=== PATIENT | female | born 1960 | race Caucasian/White ===

== ENCOUNTER 2017-04-20 09:01 | Observation (INO) | payer SELFPAY ==
[~2017-04-20 09:01] MED LIST: CARB6.5S5 EACH EAR; Z.0.NO CURRENT MEDS
[2017-04-20 09:04] VITALS: BP 140/81; PULSE 85; RESP 20; TEMP 97.7; O2SAT 96
[2017-04-20] MEDS ORDERED: ASPIRIN 325 MG TAB PO ONE (09:15)
[2017-04-20] MEDS ORDERED: SODIUM CHLORIDE 0.9% FLUSH 10 ML FLUSH IVF PRN (09:15)
--- NOTE | 2017-04-20 09:17 | PD ---
HPI Chief Complaint: Respiratory Symptoms Time Seen by Provider: 09:10 Travel History International Travel<30 days: No Contact w/Intl Traveler<30days: No Traveled to known affect area: No History of Present Illness HPI This 56-year-old female says she woke up morning around 4:00 with precordial pressure. The sensation lasted 10-15 minutes. It is associated with shortness of breath. Since then she's had for 5 episodes like this. She has not been diaphoretic. She has not had symptoms like this before. She has no history of heart disease. She is on no medications. sHe does not smoke. She is not aware of any family history of heart disease. She has no hypertension or diabetes. PFSH Past Medical History Diminished Hearing: No Immunizations Current: Yes ?: Not Menopausal: Yes Past Surgical History Section: Yes Social History Alcohol Use: Yes (rare) Tobacco Use: No Substance Use: No Allergies-Medications (Allergen,Severity, Reaction): Coded Allergies: No Known Allergies (Verified Adverse Reaction, Unknown, 04/20/17) Reported Meds & Prescriptions Reported Meds & Active Scripts Active No Active Prescriptions or Reported Medications Review of Systems General / Constitutional: No: Fever, Chills Eyes: No: Diploplia, Blurred Vision HENT: No: Headaches, Vertigo Cardiovascular: Positive: Chest Pain or Discomfort, No: Palpitations Respiratory: Positive: Shortness of Breath, No: Cough Gastrointestinal: No: Nausea, Vomiting Genitourinary: No: Urgency Physical Exam Narrative GENERAL: Well-developed female SKIN: Focused skin assessment warm/dry. HEAD: Atraumatic. Normocephalic. EYES: Pupils equal and round. No scleral icterus. No injection or drainage. ENT: No nasal bleeding or discharge. Mucous membranes pink and moist. NECK: Trachea midline. No JVD. CARDIOVASCULAR: Regular rate and rhythm. No murmur appreciated. RESPIRATORY: No accessory muscle use. Clear to auscultation. Breath sounds equal bilaterally. No chest wall tenderness GASTROINTESTINAL: Abdomen soft, there is some mild epigastric tenderness, nondistended. Hepatic and splenic margins not palpable. MUSCULOSKELETAL: No obvious deformities. No clubbing. No cyanosis. No edema. NEUROLOGICAL: Awake and alert. No obvious cranial nerve deficits. Motor grossly within normal limits. Normal speech. PSYCHIATRIC: Appropriate mood and affect; insight and judgment normal. Data Data Last Documented VS Vital Signs Date Time Temp Pulse Resp B/P (MAP) Pulse Ox O2 Delivery O2 Flow Rate FiO2 04/20/17 10:07 71 20 126/86 (99) 95 04/20/17 09:04 97.7 Orders Orders Electrocardiogram (04/20/17 09:10) Basic Metabolic Panel (Bmp) (04/20/17 09:10) Complete Blood Count With Diff (04/20/17 09:10) Magnesium (Mg) (04/20/17 09:10) Prothrombin Time / Inr (Pt) (04/20/17 09:10) Act Partial Throm Time (Ptt) (04/20/17 09:10) Troponin I (04/20/17 09:10) Chest, Single Ap (04/20/17 09:10) Ecg Monitoring (04/20/17 09:10) Iv Access Insert/Monitor (04/20/17 09:10) Oximetry (04/20/17 09:10) Oxygen Administration (04/20/17 09:10) Aspirin (Aspirin) (04/20/17 09:15) Sodium Chloride 0.9% Flush (Ns Flush) (04/20/17 09:15) D-Dimer (04/20/17 09:15) Labs Laboratory Tests Test 04/20/17 09:15 White Blood Count 6.6 TH/MM3 Red Blood Count 4.22 MIL/MM3 Hemoglobin 12.8 GM/DL Hematocrit 38.4 % Mean Corpuscular Volume 91.2 FL Mean Corpuscular Hemoglobin 30.4 PG Mean Corpuscular Hemoglobin Concent 33.4 % Red Cell Distribution Width 12.6 % Platelet Count 264 TH/MM3 Mean Platelet Volume 7.0 FL Neutrophils (%) (Auto) 64.9 % Lymphocytes (%) (Auto) 27.0 % Monocytes (%) (Auto) 6.1 % Eosinophils (%) (Auto) 1.3 % Basophils (%) (Auto) 0.7 % Neutrophils # (Auto) 4.3 TH/MM3 Lymphocytes # (Auto) 1.8 TH/MM3 Monocytes # (Auto) 0.4 TH/MM3 Eosinophils # (Auto) 0.1 TH/MM3 Basophils # (Auto) 0.0 TH/MM3 CBC Comment DIFF FINAL Differential Comment Prothrombin Time 10.3 SEC Prothromb Time International Ratio 0.9 RATIO Activated Partial Thromboplast Time 26.1 SEC D-Dimer Quantitative (PE/DVT) 0.27 MG/L FEU Blood Urea Nitrogen 12 MG/DL Creatinine 0.58 MG/DL Random Glucose 98 MG/DL Calcium Level 9.0 MG/DL Magnesium Level 2.2 MG/DL Sodium Level 142 MEQ/L Potassium Level 3.7 MEQ/L Chloride Level 108 MEQ/L Carbon Dioxide Level 23.1 MEQ/L Anion Gap 11 MEQ/L Estimat Glomerular Filtration Rate 108 ML/MIN Troponin I LESS THAN 0.02 NG/ML MDM Medical Decision Making Medical Screen Exam Complete: Yes Emergency Medical Condition: Yes Medical Record Reviewed: Yes Differential Diagnosis Differential includes chest pain, coronary artery disease, GERD, PE Narrative Course Chest x-ray is negative. D-dimer is normal. EKG shows sinus rhythm with possible right ventricular conduction delay. There are no acute ST-T wave changes. Troponin is normal. Patient has been given aspirin she has not had any more symptoms in the ER. I think she should be evaluated in the chest pain center Diagnosis Primary Impression: Chest pain Admitting Information Admitting Physician Requests: Observation Scripts No Active Prescriptions or Reported Meds Herbert Monk MD Apr 20, 2017 09:17
[2017-04-20 09:23] LABS: AUTOMATED NEUTROPHIL # 4.3 TH/MM3 (1.8-7.7); BASOPHIL % 0.7 % (0.0-2.0); EOSINOPHIL # 0.1 TH/MM3 (0-0.4); EOSINOPHIL % 1.3 % (0.0-4.0); HEMATOCRIT 38.4 % (35.0-46.0); HEMOGLOBIN 12.8 GM/DL (11.6-15.3); LYMPHOCYTE # 1.8 TH/MM3 (1.0-4.8); MEAN CELL VOLUME 91.2 FL (80.0-100.0); MEAN CORPUSCULAR HEMOGLOBIN 30.4 PG (27.0-34.0); MEAN CORPUSCULAR HGB CONC 33.4 % (32.0-36.0); MONO % 6.1 % (0.0-8.0); MONOCYTE # 0.4 TH/MM3 (0-0.9); NEUT % 64.9 % (16.0-70.0); PLATELET COUNT 264 TH/MM3 (150-450); RED BLOOD COUNT 4.22 MIL/MM3 (4.00-5.30); RED CELL DISTRIBUTION WIDTH 12.6 % (11.6-17.2); WHITE BLOOD COUNT 6.6 TH/MM3 (4.0-11.0)
[2017-04-20 09:24] VITALS: O2SAT 100
--- NOTE | 2017-04-20 09:39 | RADRPT ---
EXAM DATE/TIME: 04/20/2017 09:25 [facility] COMPARISON: No previous studies available for comparison. INDICATIONS : Short of breath and chest pain this morning. MEDICAL HISTORY : None. SURGICAL HISTORY : None. ENCOUNTER: Initial ACUITY: 1 day PAIN SCORE: 2/10 LOCATION: Bilateral chest FINDINGS: A single view of the chest demonstrates the lungs to be symmetrically aerated without evidence of mas s, infiltrate or effusion. The cardiomediastinal contours are unremarkable. Osseous structures are intact. CONCLUSION: No acute disease. Dean Chacko MD on April 20, 2017 at 9:37 Board Certified Radiologist. This report was verified electronically.
--- NOTE | 2017-04-20 09:39 | RADRPT ---
EXAM DATE/TIME: 04/20/2017 09:25 [facility] COMPARISON: No previous studies available for comparison. INDICATIONS : Short of breath and chest pain this morning. MEDICAL HISTORY : None. SURGICAL HISTORY : None. ENCOUNTER: Initial ACUITY: 1 day PAIN SCORE: 2/10 LOCATION: Bilateral chest FINDINGS: A single view of the chest demonstrates the lungs to be symmetrically aerated without evidence of mas s, infiltrate or effusion. The cardiomediastinal contours are unremarkable. Osseous structures are intact. CONCLUSION: No acute disease. eDan Chacko MD on April 20, 2017 at 9:37 Board Certified Radiologist. This report was verified electronically.
[2017-04-20 09:54] LABS: INTERNATIONAL NORMALIZED RATIO 0.9 RATIO; PROTHROMBIN TIME - PATIENT 10.3 SEC (9.8-11.6)
[2017-04-20 09:55] LABS: D-DIMER 0.27 MG/L FEU (0.00-0.50)
[2017-04-20 09:56] LABS: BICARBONATE 23.1 MEQ/L (21.0-32.0); BLOOD UREA NITROGEN 12 MG/DL (7-18); GLUCOSE,RANDOM 98 MG/DL (74-106); MAGNESIUM 2.2 MG/DL (1.5-2.5)
[2017-04-20 09:59] LABS: CREATININE 0.58 MG/DL (0.50-1.00); GLOMERULAR FILTRATION RATE 108 ML/MIN (>89)
[2017-04-20 10:03] LABS: CHLORIDE 108 MEQ/L (98-107); SODIUM (NA) 142 MEQ/L (136-145)
[2017-04-20 10:04] LABS: TROPONIN I LESS THAN 0.02 NG/ML (0.02-0.05)
[2017-04-20 10:07] VITALS: BP 126/86; PULSE 71; RESP 20; O2SAT 95
[2017-04-20 11:10] VITALS: BP 118/77; PULSE 63; RESP 20; O2SAT 100
--- NOTE | 2017-04-20 11:36 | HHI.HP ---
[facility] Service [facility] Primary Care Physician No Primary Care Physician Admission Diagnosis CHEST PAIN Diagnoses: Chief Complaint: Chest pain Travel History International Travel<30 Days: No Contact w/Intl Traveler <30 Da: No Traveled to Known Affected Are: No History of Present Illness 56-year-old white female being admitted for chest pain. Patient was in her usual state of health until early this morning when she woke up suddenly feeling a squeezing type chest pain associated with shortness of breath. This lingered on for about 15 minutes and then subsided completely. The pain recurred a few times, leading her to come to the emergency room. She says the pain was at its worst a 6 out of 10. She was not able to note any alleviating or exacerbating factors including changing positions. She did not take any medications to try to treat the pain. She says that yesterday she had some nausea and lightheadedness with no recurrence today. She denies ever having any cardiac history, no cardiac since, no bypass surgery, no stress tests. Says she does not go to the doctor often. She states she's had panic attacks in the past but cannot be sure that this felt similar to them. Review of Systems Except as stated in HPI: all other systems reviewed are Neg Past Family Social History Past Medical History Questionable panic attacks Past Surgical History C section Allergies: Coded Allergies: No Known Allergies (Verified Adverse Reaction, Unknown, 04/20/17) Family History heart disease per sister Social History walks to work, works manual labor Physical Exam Vital Signs Vital Signs Date Time Temp Pulse Resp B/P (MAP) Pulse Ox O2 Delivery O2 Flow Rate FiO2 04/20/17 11:10 63 20 118/77 (91) 100 04/20/17 10:07 71 20 126/86 (99) 95 04/20/17 09:24 100 04/20/17 09:04 97.7 85 20 140/81 (100) 96 Physical Exam VS: Afebrile GENERAL: No acute distress SKIN: Warm and dry. EYES: No scleral icterus. No injection or drainage. ENT: No nasal bleeding or discharge. Mucous membranes pink and moist. CARDIOVASCULAR: Regular rate and rhythm. no murmurs RESPIRATORY: No accessory muscle use. Clear to auscultation. Breath sounds equal bilaterally. GASTROINTESTINAL: Abdomen soft, non-tender, nondistended. Hepatic and splenic margins not palpable. Extremities: No clubbing, cyanosis, or edema. No obvious deformities. MUSCULOSKELETAL: Extremities without clubbing, cyanosis, or edema. No obvious deformities. grossly intact ROM with 5/5 strength in upper extremities. No chest wall tenderness to palpation and suprasternal or midsternal areas. NEUROLOGICAL: Awake and alert. No obvious cranial nerve deficits. No facial droop nor slurred speech noted. PSYCHIATRIC: Appropriate mood and affect; insight and judgment normal. Laboratory Laboratory Tests Test 04/20/17 09:15 White Blood Count 6.6 Red Blood Count 4.22 Hemoglobin 12.8 Hematocrit 38.4 Mean Corpuscular Volume 91.2 Mean Corpuscular Hemoglobin 30.4 Mean Corpuscular Hemoglobin Concent 33.4 Red Cell Distribution Width 12.6 Platelet Count 264 Mean Platelet Volume 7.0 Neutrophils (%) (Auto) 64.9 Lymphocytes (%) (Auto) 27.0 Monocytes (%) (Auto) 6.1 Eosinophils (%) (Auto) 1.3 Basophils (%) (Auto) 0.7 Neutrophils # (Auto) 4.3 Lymphocytes # (Auto) 1.8 Monocytes # (Auto) 0.4 Eosinophils # (Auto) 0.1 Basophils # (Auto) 0.0 CBC Comment DIFF FINAL Differential Comment Prothrombin Time 10.3 Prothromb Time International Ratio 0.9 Activated Partial Thromboplast Time 26.1 D-Dimer Quantitative (PE/DVT) 0.27 Blood Urea Nitrogen 12 Creatinine 0.58 Random Glucose 98 Calcium Level 9.0 Magnesium Level 2.2 Sodium Level 142 Potassium Level 3.7 Chloride Level 108 Carbon Dioxide Level 23.1 Anion Gap 11 Estimat Glomerular Filtration Rate 108 Troponin I LESS THAN 0.02 Result Diagram: 04/20/1791404/20/17914 Imaging Last Impressions Chest X-Ray 04/20/17909 Signed Impressions: Service Date/Time: Thursday, April 20, 2017 09:25 - CONCLUSION: No acute disease. MD Frank Rodas VTE Risk Assessment Caprini VTE Risk Assessment: No/Low Risk (score <= 1) Caprini Risk Assessment Model Point Value = 1 Point Value = 2 Point Value = 3 Point Value = 5 Age 41-60 Minor surgery BMI > 25 kg/m2 Swollen legs Varicose veins or History of unexplained or recurrent spontaneous Oral contraceptives or hormone replacement Sepsis (< 1 month) Serious lung disease, including pneumonia (< 1 month) Abnormal pulmonary function Acute myocardial infarction Congestive heart failure (< 1 month) History of inflammatory bowel disease Medical patient at bed rest Age 61-74 Arthroscopic surgery Major open surgery (> 45 min) Laparoscopic surgery (> 45 min) Malignancy Confined to bed (> 72 hours) Immobilizing plaster cast Central venous access Age >= 75 History of VTE Family history of VTE Factor V Leiden Prothrombin [id number] Lupus anticoagulant Anticardiolipin antibodies Elevated serum homocysteine Heparin-induced thrombocytopenia Other congenital or acquired thrombophilia Stroke (< 1 month) Elective arthroplasty Hip, pelvis, or leg fracture Acute spinal cord injury (< 1 month) Prophylaxis Regimen Total Risk Factor Score Risk Level Prophylaxis Regimen 0-1 Low Early ambulation 2 Moderate Order ONE of the following: *Sequential Compression Device (SCD) *Heparin 5000 units SQ BID 3-4 Higher Order ONE of the following medications: *Heparin 5000 units SQ TID *Enoxaparin/Lovenox 40 mg SQ daily (WT < 150 kg, CrCl > 30 mL/min) *Enoxaparin/Lovenox 30 mg SQ daily (WT < 150 kg, CrCl > 10-29 mL/min) *Enoxaparin/Lovenox 30 mg SQ BID (WT < 150 kg, CrCl > 30 mL/min) AND/OR *Sequential Compression Device (SCD) 5 or more Highest Order ONE of the following medications: *Heparin 5000 units SQ TID (Preferred with Epidurals) *Enoxaparin/Lovenox 40 mg SQ daily (WT < 150 kg, CrCl > 30 mL/min) *Enoxaparin/Lovenox 30 mg SQ daily (WT < 150 kg, CrCl > 10-29 mL/min) *Enoxaparin/Lovenox 30 mg SQ BID (WT < 150 kg, CrCl > 30 mL/min) AND *Sequential Compression Device (SCD) Assessment and Plan Assessment and Plan Chest pain - admit to chest pain center, had caffeine this morning, plan for either treadmill or a Lexiscan in a.m. - We'll try starting patient on PPI - EKG which I independently reviewed shows no acute ST segment abnormalities concerning for ischemia - we'll trend troponins, nothing by mouth after midnight - Continue aspirin 325 mg and Lipitor 40 mg DVT prophylaxis - SCDs Patient is hemodynamically stable upon admission. I was later notified that the patient was wanting to leave AMA because she wanted get back to work, she says she was feeling better. It was explained to her thoroughly that this is AGAINST MEDICAL ADVICE and that an incomplete workup and treatment of her symptoms could result in severe morbidity or . Patient decided to leave anyway. Quang Andrew MD Apr 20, 2017 11:36
[2017-04-20 12:51] VITALS: BP 115/78
[2017-04-20 15:33] VITALS: PULSE 60
[2017-04-20 20:00] LABS: CHOLESTEROL/ HDL RATIO 2.43 RATIO; HDL CHOLESTEROL 119.2 MG/DL (40.0-60.0)
--- NOTE | 2017-04-21 18:18 | EKG ---
Date Performed: 04/20/2017 Time Performed: 09:21:22 PTAGE: 56 years EKG: Sinus rhythm POSSIBLE RIGHT VENTRICULAR CONDUCTION DELAY BORDERLINE ECG Compared to prior tracing no significant change PREVIOUS TRACING : 10/06/2003 09.29 DOCTOR: Nikole Carroll Interpretating Date/Time 04/21/2017 18:17:47
--- NOTE | 2017-04-21 18:18 | EKG ---
Date Performed: 04/20/2017 Time Performed: 12:13:09 PTAGE: 56 years EKG: Sinus rhythm POSSIBLE RIGHT VENTRICULAR CONDUCTION DELAY BORDERLINE ECG Compared to prior tracing no significant change PREVIOUS TRACING : 04/20/2017 09.21 DOCTOR: Nikole Carroll Interpretating Date/Time 04/21/2017 18:18:03
== END 2017-04-20 15:58 | disposition left against medical advice (07) ==
LOC: PHEFT 09:01 → PHEDA 10:40 → PH3B 12:23
PROVIDERS: ADMIT Hospitalist; ATTEND Hospitalist
DX: R07.9 Chest pain, unspecified (principal); R94.31 Abnormal electrocardiogram [ECG] [EKG]; Z79.82 Long term (current) use of aspirin; Z79.899 Other long term (current) drug therapy
CPT/HCPCS: 71010; 80048; 80061; 83735; 84484; 85025; 85379; 85610; 85730; 93005; 99285; G0378